=== PATIENT | male | born 1990 | race Caucasian/White ===

== ENCOUNTER 2021-04-20 18:12 | Emergency (ER) | payer OTHER, SELFPAY ==
[~2021-04-20] VITALS: Ht 177.8 cm; Wt 106.5 kg
[2021-04-20 19:43] VITALS: BP 148/102
== END 2021-04-20 20:18 | disposition left against medical advice (07) ==
LOC: M ED 18:12
DX: S39.011A Strain of muscle, fascia and tendon of abdomen, initial encounter (principal); X50.0XXA Overexertion from strenuous movement or load, initial encounter; Y92.9 Unspecified place or not applicable; Y93.9 Activity, unspecified; Y99.0 Civilian activity done for income or pay; Z53.20 Procedure and treatment not carried out because of patient's decision for unspecified reasons; F17.290 Nicotine dependence, other tobacco product, uncomplicated; Z88.0 Allergy status to penicillin; Z91.048 Other nonmedicinal substance allergy status

== ENCOUNTER 2024-05-24 23:16 | Emergency (ER) | payer OTHER, SELFPAY ==
[~2024-05-24] VITALS: Ht 177.8 cm; Wt 86.7 kg
[2024-05-24] MEDS: ETOMIDATE INJ 20MG/10ML VIAL IV STA (23:23)
[2024-05-24 23:25] VITALS: BP 151/94; TEMP 96.8
[2024-05-24 23:38] LABS: BASO # 0.1 10^3/uL (0.0-0.2); BASO % 0.4 % (0.0-1.0); EOS # 0.1 10^3/uL (0.0-0.5); EOS % 0.8 % (0.0-3.0); HEMATOCRIT 44.3 % (42.0-52.0); LYMPH # 7.2 10^3/uL (1.5-5.0); LYMPH % 53.3 % (24.0-44.0); MEAN CORPUSCULAR HEMOGLOBIN 30.7 pg (27.0-33.0); MEAN CORPUSCULAR HGB CONC 33.9 g/dl (32.0-36.5); MEAN CORPUSCULAR VOLUME 90.6 fl (80.0-96.0); MONO # 0.8 10^3/uL (0.0-0.8); NEUTROPHILS # 5.2 10^3/uL (1.5-8.5); NEUTROPHILS % 38.4 % (36.0-66.0); PLATELET COUNT, AUTOMATED 214 10^3/uL (150-450); RED BLOOD COUNT 4.89 10^6/uL (4.30-6.10); WHITE BLOOD COUNT 13.6 10^3/uL (4.0-10.0)
[2024-05-25 00:12] LABS: CALCIUM LEVEL 8.3 MG/DL (8.5-10.1); CREATININE FOR GFR 1.65 MG/DL (0.70-1.30); GLOMERULAR FILTRATION RATE 52.1 (>60); POTASSIUM SERUM 3.4 MMOL/L (3.5-5.1)
[2024-05-25] MEDS: ROCURONIUM BROMIDE 50MG/5ML VIAL IV SCH (04:11)
== END 2024-05-25 04:14 | disposition expired ==
LOC: M ED 23:16
DX: S01.90XA Unspecified open wound of unspecified part of head, initial encounter (principal); W34.00XA Accidental discharge from unspecified firearms or gun, initial encounter; Y92.008 Other place in unspecified non-institutional (private) residence as the place of occurrence of the external cause; Y93.9 Activity, unspecified; Y99.9 Unspecified external cause status
CPT/HCPCS: 31500; 36430; 43752; 51702; 71045; 80048; 85025; 86850; 86900; 86901; 86920; 92950; 96374; 96375; 99291; G0390; P9016